=== PATIENT | female | born 1955 | race American Indian/Alaskan Native ===

== ENCOUNTER 2017-05-17 12:43 | Day surgery (SDC) | payer BC, MEDICAID ==
[2017-05-17] MEDS ORDERED: Midazolam 2 MG/2 ML VIAL ONE ×2 (13:23→14:18)
[2017-05-17] MEDS ORDERED: Propofol 10 mg/ml Inj (20 ML) ONE (13:23)
[2017-05-17] MEDS ORDERED: Bupivacaine HCl 0.25% PF (10 ml) Inj ONE (13:38)
[2017-05-17] MEDS ORDERED: Lidocaine Hydrochloride 5 ML INJ ONE (13:38)
[2017-05-17] MEDS ORDERED: Iohexol 240 (50 ml) ONE (13:39)
[2017-05-17] MEDS ORDERED: Lidocaine 1% Inj (20ml) INFIL ONE (13:42)
[2017-05-17] MEDS ORDERED: Dexamethasone 20 MG in Sodium Chloride 0.9% 50 ML IV ONE (13:42)
[2017-05-17] MEDS ORDERED: Iohexol 240 (50 ml) IVP ONE (13:45)
[2017-05-17] MEDS ORDERED: Sodium Chloride 0.9% 500 ML IV ONE (13:45)
[2017-05-17] MEDS ORDERED: Bupivacaine HCl 0.25% PF (10 ml) Inj EPI ONE (13:49)
[2017-05-17] MEDS ORDERED: Lactated Ringer's 1,000 ML IV ONE ×2 (14:00→14:31)
[2017-05-17 15:25] VITALS: TEMP 97.1; O2SAT 95
[2017-05-17 16:03] VITALS: BP 158/86; PULSE 75; RESP 17
--- NOTE | 2017-05-18 03:46 | OP ---
PROCEDURE DATE: 05/17/2017 SURGEON: IVONNE EDMOND MD OPERATIVE PROCEDURE: Lumbosacral epidural steroid injection, transforaminal approach with fluoroscopic guidance. INJECTATE: A total of 5.0 cc; consisting of 2.5 cc of Kenalog (40 mg/cc), with the remainder of saline. APPROACH: Transforaminal approach. FINDINGS: Flow of contrast was good to excellent along the right L5 and S1 nerve roots and into the epidural space. PROCEDURE: The patient was prepped and draped in a sterile fashion in the prone position after informed consent was signed and all the patient's questions were answered including the risks, benefits, alternative treatment options, and prognosis. The risks include but are not limited to infection, allergic reaction, increased pain, lack of therapeutic benefit, steroid reaction, nerve damage, paralysis, stroke, epidural hematoma, syncope, headache, respiratory or cardiac arrest, and scar formation. The C-arm was positioned so that an oblique view of the foramen as noted above was visualized. The soft tissues overlying this structure were infiltrated with 2-3 cc of 1% lidocaine without epinephrine. A 22-gauge spinal needle was inserted toward the target using a "trajectory" view along the fluoroscope beam. Under AP and lateral visualization, the needle was advanced so it did not puncture dura. Biplanar projections were used to confirm position. Aspiration was confirmed to be negative for CSF and/or blood. A 1 to 2 cc volume of Omnipaque-300 was injected and flow of contrast was noted at each level. Radiographs were obtained for documentation purposes. After attaining flow of contrast documented above, a 1 cc test dose of 1% lidocaine was injected into each respective transforaminal space. The patient was observed for 90 seconds post injection. After no sensory deficits were reported, and normal lower extremity motor function was noted, the above injectate was administered so that equal amounts of the injectate were placed at each foramen into the transforaminal epidural space. The patient tolerated the procedure well and was discharged after an appropriate period of observation. If there are any complications, the patient was instructed to call us. The patient is to follow up with the requesting physician within one to two weeks. Ivonne Edmond MD
--- NOTE | 2017-05-18 09:52 | RAD ---
PROCEDURE: Intraoperative Fluoroscopy. HISTORY: LUMBAR RADICULOPATHY FINDINGS: Fluoroscopic assistance was provided for epidural spinal injection. Please refer to the operative report from IVONNE Constantino, , MD [facility].
== END 2017-05-17 16:01 | disposition home or self-care (01) ==
LOC: C.SDS 12:43
PROVIDERS: ATTEND Neuromusculoskeletal Medicine, Sports Medicine
DX: M54.17 Radiculopathy, lumbosacral region (principal); E78.5 Hyperlipidemia, unspecified; I10 Essential (primary) hypertension; E11.9 Type 2 diabetes mellitus without complications
CPT/HCPCS: 64483; 82948; J1100; J2001; J2250; J2704; J7120

== ENCOUNTER 2017-11-09 12:32 | Day surgery (SDC) | payer BC, MEDICAID ==
[2017-11-09] MEDS ORDERED: Iohexol 240 (50 ml) ONE (14:15)
[2017-11-09] MEDS ORDERED: Bupivacaine 0.75% Inj(30mL) ONE (14:15)
[2017-11-09] MEDS ORDERED: Lidocaine 2% MPF (5 ml) Inj ONE (14:16)
[2017-11-09] MEDS ORDERED: Propofol 10 mg/ml Inj (20 ML) ONE (14:48)
[2017-11-09] MEDS ORDERED: HYDROmorphone 0.5 mg/0.5 ml ISec IVP PRN (15:03)
[2017-11-09 18:09] VITALS: O2SAT 96
[2017-11-09 18:11] VITALS: BP 135/57; PULSE 64; RESP 19; TEMP 97.8
--- NOTE | 2017-11-10 04:22 | OP ---
Copied To: Whitney Abad MD Attending MD: Whitney Abad MD PROCEDURE DATE: 11/09/2017 SURGEON: Whitney Abad MD OPERATIVE PROCEDURE: Lumbosacral epidural steroid injection, transforaminal approach with fluoroscopic guidance. INJECTATE: A total of 5 mL; consisting of 2.5 mL of Kenalog (40 mg/mL), with the remainder of saline. APPROACH: Transforaminal approach. FINDINGS: Flow of contrast was excellent along the bilateral L5 nerve roots, into the epidural space. PROCEDURE: The patient was prepped and draped in a sterile fashion in the prone position after informed consent was signed and all the patient's questions were answered including the risks, benefits, alternative treatment options, and prognosis. The risks include but are not limited to infection, allergic reaction, increased pain, lack of therapeutic benefit, steroid reaction, nerve damage, paralysis, stroke, epidural hematoma, syncope, headache, respiratory or cardiac arrest, and scar formation. The C-arm was positioned so that an oblique view of the foramen as noted above was visualized. The soft tissues overlying this structure were infiltrated with 2-3 mL of 1% lidocaine without epinephrine. A 22-gauge spinal needle was inserted toward the target using a "trajectory" view along the fluoroscope beam. Under AP and lateral visualization, the needle was advanced so it did not puncture dura. Biplanar projections were used to confirm position. Aspiration was confirmed to be negative for CSF and/or blood. A 1 to 2 mL volume of Omnipaque-300 was injected and flow of contrast was noted at each level. Radiographs were obtained for documentation purposes. After attaining flow of contrast documented above, a 1 mL test dose of 1% lidocaine was injected into each respective transforaminal space. The patient was observed for 90 seconds post injection. After no sensory deficits were reported, and normal lower extremity motor function was noted, the above injectate was administered so that equal amounts of the injectate were placed at each foramen into the transforaminal epidural space. The patient tolerated the procedure well and was discharged after an appropriate period of observation. If there are any complications, the patient was instructed to call us. The patient is to follow up with the requesting physician within one to two weeks. Ariz MD Pollo [facility] # [id number]
--- NOTE | 2017-11-10 09:19 | RAD ---
Date of service: 11/09/2017 PROCEDURE: Intraoperative Fluoroscopy. HISTORY: LUMBAR DISC DERANGEMENT FINDINGS: Fluoroscopic assistance was provided for bilateral L5 facet injections. Please refer to the operative report from IVONNE Constantino, , MD [facility].
== END 2017-11-09 16:30 | disposition home or self-care (01) ==
LOC: C.SDS 12:32
PROVIDERS: ATTEND Neuromusculoskeletal Medicine, Sports Medicine
DX: M51.27 Other intervertebral disc displacement, lumbosacral region (principal)
CPT/HCPCS: 64483; 82948; J1100; J2704; Q9966

== ENCOUNTER 2018-01-25 12:54 | Day surgery (SDC) | payer BC, MEDICAID ==
[2018-01-25] MEDS ORDERED: Sodium Chloride 0.9% 0 ML IV ONE ×2 (13:33→13:57)
[2018-01-25] MEDS ORDERED: Lidocaine Hydrochloride 5 ML INJ ONE (13:34)
[2018-01-25] MEDS ORDERED: Iohexol 240 (50 ml) ONE (13:34)
[2018-01-25] MEDS ORDERED: Midazolam 2 MG/2 ML VIAL ONE (13:55)
[2018-01-25] MEDS ORDERED: Propofol 10 mg/ml Inj (20 ML) ONE (13:55)
[2018-01-25] MEDS ORDERED: Bupivacaine HCl 0.5% PF (30 ml) Inj ONE (13:57)
[2018-01-25] MEDS ORDERED: Lactated Ringer's 1,000 ML IV ONE (14:40)
[2018-01-25 15:45] VITALS: BP 103/50; PULSE 70; RESP 18; TEMP 97.8; O2SAT 97
--- NOTE | 2018-01-25 17:41 | RAD ---
Date of service: 01/25/2018 PROCEDURE: Intraoperative Fluoroscopy. HISTORY: LUMBAR DISC DERANGEMENT FINDINGS: Fluoroscopic assistance was provided. Fluoroscopy time = 132.0 sec. Radiation dose = 20.32 mGy. Please refer to the operative report from IVONNE Constantino, , MD [facility].
--- NOTE | 2018-01-26 04:07 | OP ---
PROCEDURE DATE: 01/25/2018 SURGEON: Whitney Abad MD DATE OF SURGERY: 01/25/2018 OPERATIVE PROCEDURE: Lumbosacral epidural steroid injection, transforaminal approach with fluoroscopic guidance. INJECTATE: A total of 5 mL; consisting of 2.5 mL of Kenalog (40 mg/mL), with the remainder of saline. APPROACH: Transforaminal approach. FINDINGS: Flow of contrast was excellent along the right L4 and S1 nerve roots and into the epidural space. DESCRIPTION OF PROCEDURE: The patient was prepped and draped in a sterile fashion in the prone position after informed consent was signed and all the patient's questions were answered including the risks, benefits, alternative treatment options, and prognosis. The risks include but are not limited to infection, allergic reaction, increased pain, lack of therapeutic benefit, steroid reaction, nerve damage, paralysis, stroke, epidural hematoma, syncope, headache, respiratory or cardiac arrest, and scar formation. The C-arm was positioned so that an oblique view of the foramen as noted above was visualized. The soft tissues overlying this structure were infiltrated with 2-3 mL of 1% lidocaine without epinephrine. A 22-gauge spinal needle was inserted toward the target using a "trajectory" view along the fluoroscope beam. Under AP and lateral visualization, the needle was advanced so it did not puncture dura. Biplanar projections were used to confirm position. Aspiration was confirmed to be negative for CSF and/or blood. A 1 to 2 mL volume of Omnipaque-300 was injected and flow of contrast was noted at each level. Radiographs were obtained for documentation purposes. After attaining flow of contrast documented above, a 1 mL test dose of 1% lidocaine was injected into each respective transforaminal space. The patient was observed for 90 seconds post injection. After no sensory deficits were reported, and normal lower extremity motor function was noted, the above injectate was administered so that equal amounts of the injectate were placed at each foramen into the transforaminal epidural space. The patient tolerated the procedure well and was discharged after an appropriate period of observation. If there are any complications, the patient was instructed to call us. The patient is to follow up with the requesting physician within one to two weeks. Ariz MD Pollo
== END 2018-01-25 15:45 | disposition home or self-care (01) ==
LOC: C.SDS 12:54
PROVIDERS: ATTEND Neuromusculoskeletal Medicine, Sports Medicine
DX: M51.27 Other intervertebral disc displacement, lumbosacral region (principal); I10 Essential (primary) hypertension; E11.9 Type 2 diabetes mellitus without complications; E78.5 Hyperlipidemia, unspecified
CPT/HCPCS: 64483; 64484; 82948; J1100; J2250; J2704; J3010; J7120; Q9966

== ENCOUNTER 2018-08-02 08:16 | Day surgery (SDC) | payer BC ==
[2018-07-26 11:11] VITALS: BMI 33.6
[2018-08-02] MEDS ORDERED: Lidocaine Hydrochloride 20 ML INJ ONE (08:59)
[2018-08-02] MEDS ORDERED: Bupivacaine 0.25% 20 ML INJ IJ ONE (08:59)
[2018-08-02] MEDS ORDERED: Sodium Chloride 0.9% 20 ML IV ONE (08:59)
[2018-08-02] MEDS ORDERED: Iohexol 240 (50 ml) ONE (09:00)
[2018-08-02] MEDS ORDERED: Bupivacaine HCl 0.5% PF (10 ml) Inj ONE (09:39)
[2018-08-02] MEDS ORDERED: Propofol 10 mg/ml Inj (20 ML) ONE (10:13)
[2018-08-02 11:40] VITALS: RESP 18; O2SAT 100
[2018-08-02 12:04] VITALS: BP 159/68; PULSE 85; TEMP 97.6
--- NOTE | 2018-08-02 15:05 | RAD ---
Date of service: 08/02/2018 PROCEDURE: Intraoperative Fluoroscopy. HISTORY: LUMBAR DISC herniation FINDINGS: Fluoroscopic assistance was provided for lumbar injections. Please refer to the operative report from IVONNE Constantino, , MD [facility].
--- NOTE | 2018-08-03 01:08 | OP ---
PROCEDURE DATE: 08/02/2018 INJECTATE: A total of 5.0 cc; consisting of 1.5 cc of Dexamethasone (10 mg/cc), with the remainder of Saline. LEVELS INJECTED: Bilateral L5 nerve root. APPROACH: Transforaminal. COMMENTS: N/A FINDINGS: Flow of contrast was excellent along the bilateral L5 nerve roots and into the epidural space. PROCEDURE: The history and physical were reviewed. History and neuromuscular physical examination findings within 30 days were reviewed and confirmed. Patient was actively involved throughout the procedure. Allergies to medications and contrast dye were reviewed and a medication reconciliation review was performed as well. The patient was prepped and draped in a sterile fashion in the prone position after informed consent was read again to the patient and signed and questions if any were answered including the risks, benefits, alternative treatment options, and prognosis. The C-arm was positioned so that an oblique view of the foramen as noted above was visualized. The soft tissues overlying this structure were infiltrated with 2-3 cc of 1% Lidocaine without Epinephrine. A 22 gauge spinal needle was inserted toward the target using a "trajectory" view along the fluoroscope beam. Under AP and lateral visualization, the needle was advanced so it did not puncture dura. Biplanar projections were used to confirm position. Aspiration was confirmed to be negative for CSF and/or blood. A 1-2 cc volume of Omnipaque-300 was injected and flow of contrast was noted at each level. Radiographs were obtained for documentation purposes. After attaining flow of contrast documented above, a 1 cc test dose of 1% Lidocaine was injected into each respective transforaminal space. The patient was observed for 90 seconds post injection. After no sensory deficits were reported, and normal lower extremity motor function was noted, the above injectate was administered into the transforaminal epidural space. The patient tolerated the procedure well and was sent to recovery room. Patient was discharged after an appropriate period of observation. Discharge instructions were given. If there are any complications, the patient was instructed to call us. The patient is to follow-up with the requesting physician within one to two weeks. Improvement after today's procedure: Patient reported subjective improvement in pain immediately post procedure. Ariz MD Pollo
== END 2018-08-02 12:24 | disposition home or self-care (01) ==
LOC: C.SDS 08:16
PROVIDERS: ATTEND Neuromusculoskeletal Medicine, Sports Medicine
DX: M51.27 Other intervertebral disc displacement, lumbosacral region (principal)
CPT/HCPCS: 64483; 82948; J1100; J2001; J2704; J7120; Q9966